=== PATIENT | male | born 1980 | race Two or more races ===

== ENCOUNTER 2019-06-07 23:00 | Emergency (ER) | payer MEDICAID ==
[~2019-06-07] VITALS: Ht 175.3 cm; Wt 76.2 kg
[2019-06-07 23:15] VITALS: BP 149/94
== END 2019-06-08 01:23 | disposition home or self-care (01) ==
LOC: ER 23:00
DX: B35.4 Tinea corporis (principal)

== ENCOUNTER 2019-06-11 14:23 | Emergency (ER) | payer MEDICAID ==
[~2019-06-11] VITALS: Ht 175.3 cm; Wt 77.1 kg
[2019-06-11 14:44] VITALS: BP 155/82
== END 2019-06-11 16:07 | disposition left against medical advice (07) ==
LOC: ER 14:28
DX: R21 Rash and other nonspecific skin eruption (principal); Z53.21 Procedure and treatment not carried out due to patient leaving prior to being seen by health care provider